=== PATIENT | male | born 1985 | race Two or more races ===

== ENCOUNTER 2018-04-04 21:54 | Emergency (ER) | payer SELFPAY ==
[~2018-04-04] VITALS: Ht 167.6 cm; Wt 88.0 kg
[2018-04-04 22:29] LABS: BASOPHILS # (AUTO) 0.02 x10^3/uL (0-0.1); BASOPHILS % (AUTO) 0 % (0-1); EOSINOPHILS # (AUTO) 0.14 x10^3/uL (0-0.4); EOSINOPHILS % (AUTO) 2 % (1-7); LYMPHOCYTES # (AUTO) 2.14 x10^3/uL (1-3.4); LYMPHOCYTES % (AUTO) 34 % (22-44); MD NO; MEAN CORPUSCULAR HEMOGLOBIN 29.9 pg (27.5-34.5); MEAN CORPUSCULAR HGB CONC 33.9 g/dL (33.2-36.2); MEAN CORPUSCULAR VOLUME 88.2 fL (81-97); MEAN PLATELET VOLUME 7.2 fL (7.4-10.4); MONOCYTES % (AUTO) 10 % (2-9); NEUTROPHILS # (AUTO) 3.48 x10^3/uL (1.8-6.8); NEUTROPHILS % (AUTO) 54 % (42-75); PLATELET COUNT 295 x10^3/uL (130-400); RED BLOOD COUNT 4.86 x10^6/uL (4.38-5.82); RED CELL DISTRIBUTION WIDTH 13.1 % (9.4-14.8)
[2018-04-04] MEDS ORDERED: PANTOPRAZOLE 20MG TABLET ONE (22:30)
[2018-04-04] MEDS ORDERED: PANTOPRAZOLE 20MG TABLET PO ONE (22:30)
[2018-04-04] MEDS ORDERED: ONDANSETRON ODT 4 MG PO ONE (22:30)
[2018-04-04] MEDS ORDERED: ONDANSETRON ODT 4 MG ONE (22:31)
[2018-04-04 22:41] LABS: ALANINE AMINOTRANSFERASE 71 U/L (12-78); ALBUMIN 2.9 g/dL (3.4-5.0); ANION GAP 9 mmol/L (5-15); CALCIUM 7.8 mg/dL (8.5-10.1); CHLORIDE 111 mmol/L (98-107); CREATININE 1.01 mg/dL (0.7-1.3)
[2018-04-04 22:43] LABS: ALKALINE PHOSPHATASE 100 U/L (45-117); BILIRUBIN,TOTAL 0.2 mg/dL (0.2-1.0)
[2018-04-04 22:56] LABS: MICROSCOPIC NOT IND
[2018-04-04 23:01] LABS: CULTURE INDICATED? NO
[2018-04-04 23:27] VITALS: BP 105/52
== END 2018-04-05 00:07 ==
LOC: ED 04-05 00:01
DX: R10.84 Generalized abdominal pain (principal); R11.2 Nausea with vomiting, unspecified
CPT/HCPCS: 36415; 74021; 80053; 81003; 83690; 85025; 99285

== ENCOUNTER 2018-04-07 13:27 | Emergency (ER) | payer MEDICAID ==
[~2018-04-07] VITALS: Ht 167.6 cm; Wt 91.3 kg
[2018-04-07 14:19] LABS: BASOPHILS % (AUTO) 0 % (0-1); EOSINOPHILS # (AUTO) 0.14 x10^3/uL (0-0.4); EOSINOPHILS % (AUTO) 3 % (1-7); LYMPHOCYTES # (AUTO) 1.49 x10^3/uL (1-3.4); LYMPHOCYTES % (AUTO) 29 % (22-44); MD NO; MEAN CORPUSCULAR HEMOGLOBIN 29.3 pg (27.5-34.5); MEAN CORPUSCULAR HGB CONC 33.5 g/dL (33.2-36.2); MEAN CORPUSCULAR VOLUME 87.3 fL (81-97); MEAN PLATELET VOLUME 7.2 fL (7.4-10.4); MONOCYTES # (AUTO) 0.43 x10^3/uL (0.2-0.8); MONOCYTES % (AUTO) 8 % (2-9); NEUTROPHILS # (AUTO) 3.09 x10^3/uL (1.8-6.8); NEUTROPHILS % (AUTO) 60 % (42-75); PLATELET COUNT 269 x10^3/uL (130-400); RED BLOOD COUNT 4.94 x10^6/uL (4.38-5.82); RED CELL DISTRIBUTION WIDTH 13.4 % (9.4-14.8)
[2018-04-07 14:28] LABS: ALANINE AMINOTRANSFERASE 82 U/L (12-78); ALBUMIN 3.1 g/dL (3.4-5.0); ANION GAP 8 mmol/L (5-15); CALCIUM 8.2 mg/dL (8.5-10.1); CHLORIDE 111 mmol/L (98-107)
[2018-04-07 14:30] LABS: ALKALINE PHOSPHATASE 103 U/L (45-117); BILIRUBIN,TOTAL 0.3 mg/dL (0.2-1.0); TOTAL PROTEIN 6.4 g/dL (6.4-8.2)
[2018-04-07] MEDS ORDERED: ONDANSETRON ODT 4 MG ONE (14:40)
[2018-04-07] MEDS ORDERED: ONDANSETRON ODT 4 MG PO ONE (15:00)
[2018-04-07 16:07] VITALS: BP 139/77
== END 2018-04-07 16:10 ==
LOC: ED 16:04
DX: R11.2 Nausea with vomiting, unspecified (principal); R10.84 Generalized abdominal pain; J02.8 Acute pharyngitis due to other specified organisms; B97.89 Other viral agents as the cause of diseases classified elsewhere
CPT/HCPCS: 36415; 74022; 80053; 83690; 85025; 99285; Q0162

== ENCOUNTER 2018-04-08 11:05 | Emergency (ER) | payer MEDICAID ==
[~2018-04-08] VITALS: Ht 167.6 cm; Wt 92.6 kg
[2018-04-08] MEDS ORDERED: ONDANSETRON ODT 4 MG ONE (12:23)
[2018-04-08] MEDS ORDERED: DICYCLOMINE 10 MG/ML, 2ML ONE (12:29)
[2018-04-08] MEDS ORDERED: DICYCLOMINE 10 MG/ML, 2ML IM ONE (12:30)
[2018-04-08] MEDS ORDERED: ONDANSETRON ODT 8 MG PO ONE (12:30)
[2018-04-08 12:47] LABS: ALANINE AMINOTRANSFERASE 89 U/L (12-78); ALBUMIN 3.1 g/dL (3.4-5.0); ANION GAP 7 mmol/L (5-15); CALCIUM 8.1 mg/dL (8.5-10.1); CHLORIDE 108 mmol/L (98-107); CREATININE 0.87 mg/dL (0.7-1.3)
[2018-04-08 12:49] LABS: ALKALINE PHOSPHATASE 102 U/L (45-117); BASOPHILS # (AUTO) 0.02 x10^3/uL (0-0.1); BASOPHILS % (AUTO) 0 % (0-1); BILIRUBIN,TOTAL 0.4 mg/dL (0.2-1.0); EOSINOPHILS # (AUTO) 0.12 x10^3/uL (0-0.4); EOSINOPHILS % (AUTO) 2 % (1-7); LYMPHOCYTES # (AUTO) 1.37 x10^3/uL (1-3.4); LYMPHOCYTES % (AUTO) 21 % (22-44); MD NO; MEAN CORPUSCULAR HEMOGLOBIN 29.3 pg (27.5-34.5); MEAN CORPUSCULAR HGB CONC 33.5 g/dL (33.2-36.2); MEAN CORPUSCULAR VOLUME 87.4 fL (81-97); MEAN PLATELET VOLUME 7.3 fL (7.4-10.4); MONOCYTES # (AUTO) 0.62 x10^3/uL (0.2-0.8); MONOCYTES % (AUTO) 9 % (2-9); NEUTROPHILS # (AUTO) 4.55 x10^3/uL (1.8-6.8); NEUTROPHILS % (AUTO) 68 % (42-75); PLATELET COUNT 256 x10^3/uL (130-400); RED BLOOD COUNT 5.12 x10^6/uL (4.38-5.82); RED CELL DISTRIBUTION WIDTH 13.1 % (9.4-14.8); TOTAL PROTEIN 6.4 g/dL (6.4-8.2)
[2018-04-08 14:04] VITALS: BP 142/80
== END 2018-04-08 14:08 | disposition home or self-care (01) ==
LOC: ED 12:22
DX: G89.29 Other chronic pain (principal); R11.2 Nausea with vomiting, unspecified; R10.9 Unspecified abdominal pain; B19.10 Unspecified viral hepatitis B without hepatic coma
CPT/HCPCS: 36415; 80053; 83690; 85025; 96372; 99284; J0500; Q0162

== ENCOUNTER 2018-04-11 05:27 | Emergency (ER) | payer MEDICAID ==
[~2018-04-11] VITALS: Ht 167.6 cm; Wt 87.7 kg
[2018-04-11 05:30] VITALS: BP 132/81
[2018-04-11] MEDS ORDERED: ONDANSETRON ODT 4 MG ONE (05:52)
[2018-04-11] MEDS ORDERED: HYDROcodone/APAP 7.5-325MG/15ML UDC ONE (05:52)
[2018-04-11] MEDS ORDERED: DEXAMETHASONE 4 MG TABLET ONE (05:52)
[2018-04-11] MEDS ORDERED: HYDROcodone/APAP 7.5-325MG/15ML UDC PO ONE (06:00)
[2018-04-11] MEDS ORDERED: ONDANSETRON ODT 4 MG PO ONE (06:00)
[2018-04-11] MEDS ORDERED: DEXAMETHASONE 4 MG TABLET PO ONE (06:00)
== END 2018-04-11 07:13 | disposition home or self-care (01) ==
LOC: ED 06:19
DX: J02.8 Acute pharyngitis due to other specified organisms (principal); B97.89 Other viral agents as the cause of diseases classified elsewhere; Z72.9 Problem related to lifestyle, unspecified; Z59.0 Homelessness
CPT/HCPCS: 71046; 87081; 87880; 99284; Q0162

== ENCOUNTER 2018-04-14 06:21 | Emergency (ER) | payer MEDICAID ==
[~2018-04-14] VITALS: Ht 167.6 cm; Wt 89.6 kg
[2018-04-14] MEDS ORDERED: SODIUM CHLORIDE 0.9% 1,000ML IVBOLUS ONE (07:30)
[2018-04-14] MEDS ORDERED: ONDANSETRON 2MG/ML, 2ML IVPush ONE (07:30)
[2018-04-14] MEDS ORDERED: MORPHINE SULFATE 4 MG/ML, 1ML ONE ×2 (07:49→10:54)
[2018-04-14] MEDS ORDERED: DIPHENHYDRAMINE 50 MG/ML, 1ML ONE (07:49)
[2018-04-14] MEDS ORDERED: ONDANSETRON 2MG/ML, 2ML ONE (07:49)
[2018-04-14] MEDS: MORPHINE SULFATE 4 MG/ML, 1ML IVPush PRN ×2 (07:56→10:56)
[2018-04-14] MEDS ORDERED: DIPHENHYDRAMINE 50 MG/ML, 1ML IVPush ONE (08:00)
[2018-04-14 08:07] LABS: BASOPHILS % (AUTO) 0 % (0-1); EOSINOPHILS # (AUTO) 0.09 x10^3/uL (0-0.4); EOSINOPHILS % (AUTO) 1 % (1-7); LYMPHOCYTES # (AUTO) 0.88 x10^3/uL (1-3.4); LYMPHOCYTES % (AUTO) 11 % (22-44); MD NO; MEAN CORPUSCULAR HEMOGLOBIN 29.4 pg (27.5-34.5); MEAN CORPUSCULAR HGB CONC 33.9 g/dL (33.2-36.2); MEAN CORPUSCULAR VOLUME 86.8 fL (81-97); MEAN PLATELET VOLUME 7.1 fL (7.4-10.4); MONOCYTES # (AUTO) 0.52 x10^3/uL (0.2-0.8); MONOCYTES % (AUTO) 7 % (2-9); NEUTROPHILS # (AUTO) 6.44 x10^3/uL (1.8-6.8); NEUTROPHILS % (AUTO) 81 % (42-75); PLATELET COUNT 217 x10^3/uL (130-400); RED BLOOD COUNT 5.35 x10^6/uL (4.38-5.82); RED CELL DISTRIBUTION WIDTH 13.1 % (9.4-14.8)
[2018-04-14 08:15] LABS: ALANINE AMINOTRANSFERASE 76 U/L (12-78); ALBUMIN 3.1 g/dL (3.4-5.0); ANION GAP 7 mmol/L (5-15); CALCIUM 8.1 mg/dL (8.5-10.1); CHLORIDE 105 mmol/L (98-107); CREATININE 0.88 mg/dL (0.7-1.3)
[2018-04-14 08:18] LABS: ALKALINE PHOSPHATASE 93 U/L (45-117); BILIRUBIN,TOTAL 0.8 mg/dL (0.2-1.0); TOTAL PROTEIN 6.6 g/dL (6.4-8.2)
[2018-04-14] MEDS ORDERED: OMNIPAQUE 350 MG/ML, 100ML BOTTLE ONE (09:52)
[2018-04-14 11:40] VITALS: BP 115/64
== END 2018-04-14 12:20 | disposition home or self-care (01) ==
LOC: ED 07:04
DX: R10.84 Generalized abdominal pain (principal); J15.9 Unspecified bacterial pneumonia; R11.2 Nausea with vomiting, unspecified; R19.7 Diarrhea, unspecified
CPT/HCPCS: 36415; 74177; 80053; 83690; 85025; 93005; 96361; 96374; 96375; 96376; 99284; J1200; J2405; J7030; Q9967

== ENCOUNTER 2018-04-15 06:18 | Emergency (ER) | payer MEDICAID ==
[~2018-04-15] VITALS: Ht 167.6 cm; Wt 88.6 kg
[2018-04-15 06:20] VITALS: BP 117/69
== END 2018-04-15 07:03 | disposition home or self-care (01) ==
LOC: ED 06:26
DX: J18.9 Pneumonia, unspecified organism (principal); Z76.5 Malingerer [conscious simulation]
CPT/HCPCS: 99281

== ENCOUNTER 2018-04-17 01:55 | Emergency (ER) | payer MEDICAID ==
[~2018-04-17] VITALS: Ht 167.6 cm; Wt 89.9 kg
[2018-04-17 03:47] VITALS: BP 120/80
== END 2018-04-17 03:49 | disposition home or self-care (01) ==
LOC: ED 02:44
DX: J15.9 Unspecified bacterial pneumonia (principal); K52.9 Noninfective gastroenteritis and colitis, unspecified; Z76.5 Malingerer [conscious simulation]
CPT/HCPCS: 93005; 99283

== ENCOUNTER 2018-05-02 03:17 | Emergency (ER) | payer MEDICAID ==
[~2018-05-02] VITALS: Ht 167.6 cm; Wt 88.9 kg
[2018-05-02 03:19] VITALS: BP 149/80
== END 2018-05-02 04:50 | disposition home or self-care (01) ==
LOC: ED 04:43
DX: R05 Cough (principal); F17.200 Nicotine dependence, unspecified, uncomplicated; Z72.9 Problem related to lifestyle, unspecified; Z90.49 Acquired absence of other specified parts of digestive tract
CPT/HCPCS: 71045; 99283

== ENCOUNTER 2018-05-17 20:45 | Emergency (ER) | payer MEDICAID ==
[~2018-05-17] VITALS: Ht 167.6 cm; Wt 85.1 kg
[2018-05-17 20:45] VITALS: BP 111/71
[2018-05-17] MEDS ORDERED: DEXAMETHASONE 4 MG TABLET ONE (21:42)
[2018-05-17] MEDS ORDERED: DEXAMETHASONE 4 MG TABLET PO ONE (22:00)
== END 2018-05-17 22:01 | disposition home or self-care (01) ==
LOC: ED 21:56
DX: R07.89 Other chest pain (principal); J02.8 Acute pharyngitis due to other specified organisms; B97.89 Other viral agents as the cause of diseases classified elsewhere; R05 Cough; G89.29 Other chronic pain; F17.200 Nicotine dependence, unspecified, uncomplicated; Z90.89 Acquired absence of other organs; Z90.49 Acquired absence of other specified parts of digestive tract
CPT/HCPCS: 71046; 87081; 87147; 87880; 93005; 99284

== ENCOUNTER 2018-05-23 01:22 | Emergency (ER) | payer MEDICAID ==
[~2018-05-23] VITALS: Ht 177.8 cm; Wt 80.0 kg
[2018-05-23 01:25] VITALS: BP 140/81
[2018-05-23] MEDS ORDERED: DEXAMETHASONE 4 MG TABLET ONE ×2 (01:41→01:44)
[2018-05-23] MEDS ORDERED: DEXAMETHASONE 4 MG TABLET PO ONE (02:00)
== END 2018-05-23 02:09 | disposition home or self-care (01) ==
LOC: ED 01:53
DX: J02.0 Streptococcal pharyngitis (principal); F17.200 Nicotine dependence, unspecified, uncomplicated; G89.29 Other chronic pain
CPT/HCPCS: 99283

== ENCOUNTER 2018-08-29 16:25 | Emergency (ER) | payer MEDICAID ==
[~2018-08-29] VITALS: Ht 172.7 cm; Wt 65.0 kg
[2018-08-29 16:33] VITALS: BP 119/71
--- NOTE | 2018-08-29 16:51 | NUR ---
PTS WHEN ASKED WHY HE WAS HERE STATED "LOOK, I NEED TO STAY HERE THIS TIME" WHEN ASKED WHAT IS WRONG HE STATED "THEY SCREWED UP MY SURG AND YOU NEED TO FIND OUT WHAT IS WRONG" PT CONTINULY NEEDS TO BE REMINDED TO STAY AWAKE AND ANSWER QUESTIONS '
[2018-08-29] MEDS ORDERED: FAMOTIDINE 20 MG TABLET PO ONE (17:00)
[2018-08-29] MEDS ORDERED: FAMOTIDINE 20 MG TABLET ONE (17:01)
[2018-08-29 17:18] LABS: BASOPHILS # (AUTO) 0.02 x10^3/uL (0-0.1); BASOPHILS % (AUTO) 1 % (0-1); EOSINOPHILS # (AUTO) 0.13 x10^3/uL (0-0.4); EOSINOPHILS % (AUTO) 3 % (1-7); LYMPHOCYTES # (AUTO) 1.81 x10^3/uL (1-3.4); LYMPHOCYTES % (AUTO) 39 % (22-44); MD NO; MEAN CORPUSCULAR HEMOGLOBIN 29.9 pg (27.5-34.5); MEAN CORPUSCULAR HGB CONC 34.2 g/dL (33.2-36.2); MEAN CORPUSCULAR VOLUME 87.4 fL (81-97); MEAN PLATELET VOLUME 7.7 fL (7.4-10.4); MONOCYTES # (AUTO) 0.42 x10^3/uL (0.2-0.8); MONOCYTES % (AUTO) 9 % (2-9); NEUTROPHILS # (AUTO) 2.29 x10^3/uL (1.8-6.8); NEUTROPHILS % (AUTO) 49 % (42-75); PLATELET COUNT 196 x10^3/uL (130-400); RED BLOOD COUNT 4.76 x10^6/uL (4.38-5.82); RED CELL DISTRIBUTION WIDTH 13.8 % (9.4-14.8)
[2018-08-29 17:27] LABS: ALANINE AMINOTRANSFERASE 33 U/L (12-78); ALBUMIN 3.6 g/dL (3.4-5.0); ANION GAP 6 mmol/L (5-15); CALCIUM 8.6 mg/dL (8.5-10.1); CHLORIDE 111 mmol/L (98-107)
[2018-08-29 17:29] LABS: ALKALINE PHOSPHATASE 85 U/L (45-117); BILIRUBIN,TOTAL 0.3 mg/dL (0.2-1.0); TOTAL PROTEIN 6.4 g/dL (6.4-8.2)
== END 2018-08-29 18:59 | disposition home or self-care (01) ==
LOC: ED 18:30
DX: G89.29 Other chronic pain (principal); R10.84 Generalized abdominal pain; Z90.49 Acquired absence of other specified parts of digestive tract; Z72.9 Problem related to lifestyle, unspecified; Z59.0 Homelessness
CPT/HCPCS: 36415; 74021; 80053; 83690; 85025; 99284

== ENCOUNTER 2018-09-17 15:38 | Emergency (ER) | payer MEDICAID ==
[~2018-09-17] VITALS: Ht 162.6 cm; Wt 65.0 kg
[2018-09-17] MEDS ORDERED: ZIPRASIDONE 20 MG INJ IM ONE ×2 (16:00→16:03)
[2018-09-17 16:14] LABS: BASOPHILS # (AUTO) 0.03 x10^3/uL (0-0.1); BASOPHILS % (AUTO) 0 % (0-1); EOSINOPHILS # (AUTO) 0.03 x10^3/uL (0-0.4); EOSINOPHILS % (AUTO) 0 % (1-7); LYMPHOCYTES # (AUTO) 1.37 x10^3/uL (1-3.4); LYMPHOCYTES % (AUTO) 19 % (22-44); MD NO; MEAN CORPUSCULAR HEMOGLOBIN 28.9 pg (27.5-34.5); MEAN CORPUSCULAR VOLUME 87.7 fL (81-97); MEAN PLATELET VOLUME 7.5 fL (7.4-10.4); MONOCYTES # (AUTO) 0.39 x10^3/uL (0.2-0.8); MONOCYTES % (AUTO) 5 % (2-9); NEUTROPHILS # (AUTO) 5.58 x10^3/uL (1.8-6.8); NEUTROPHILS % (AUTO) 75 % (42-75); PLATELET COUNT 307 x10^3/uL (130-400); RED BLOOD COUNT 5.26 x10^6/uL (4.38-5.82); RED CELL DISTRIBUTION WIDTH 13.6 % (9.4-14.8)
--- NOTE | 2018-09-17 16:15 | NUR ---
PT FOUND TO HAVE SYRINGE WITH LIQUID IN POCKET. SECURED BY TECH AND DISPOSED OF. MEDICATED PER ORDERS. PT CONTINUES TO TALK NONSTOP, FLIGHTS OF IDEAS. PT'S CLOTHES REMOVED AND PLACED IN GOWN.
[2018-09-17 16:18] LABS: CHLORIDE 107 mmol/L (98-107)
[2018-09-17 16:24] LABS: ALANINE AMINOTRANSFERASE 31 U/L (12-78); ALBUMIN 3.8 g/dL (3.4-5.0); ANION GAP 8 mmol/L (5-15); CALCIUM 8.2 mg/dL (8.5-10.1); CREATININE 1.02 mg/dL (0.7-1.3)
[2018-09-17 16:27] LABS: ALKALINE PHOSPHATASE 84 U/L (45-117); BILIRUBIN,TOTAL 0.9 mg/dL (0.2-1.0); TOTAL PROTEIN 7.3 g/dL (6.4-8.2)
[2018-09-17 16:28] LABS: ACETAMINOPHEN < 2 mcg/mL (10-30); SALICYLATE LEVEL < 1.7 mg/dL (2.8-20.0)
--- NOTE | 2018-09-17 16:47 | NUR ---
TASK RN: Patient laying in bed with eyes closed, respirations appear even and without labor, patient appears to be asleep. Sitter within view of patient for patient's safety.
--- NOTE | 2018-09-17 17:26 | NUR ---
PT DROWSY BUT AROUSABLE. NO LONGER RAMBLING. PT ABLE TO ASK FOR WATER AND SAYS THANK YOU. BACK TO SLEEP
[2018-09-17 17:40] LABS: AMPHETAMINE SCREEN, URINE Positive (Negative); BARBITURATE SCREEN, URINE Negative (Negative); BENZODIAZEPINE SCREEN, URINE Negative (Negative); CANNABINOID SCREEN, URINE Negative (Negative); COCAINE SCREEN, URINE Negative (Negative); METHADONE SCREEN, URINE Negative (Negative); OPIATE SCREEN, URINE Negative (Negative)
--- NOTE | 2018-09-17 18:04 | NUR ---
PT SLEEPING, RESP EVEN AND UNLABORED
--- NOTE | 2018-09-17 18:51 | NUR ---
PT SLEEPING, RESP EVEN AND UNLABORED
[2018-09-17 19:58] VITALS: BP 106/63
--- NOTE | 2018-09-17 19:59 | NUR ---
DROWSY BUT AROUSABLE. VS UPDATED
--- NOTE | 2018-09-17 20:38 | NUR ---
PT AMBULATED WITH TECH, STEADY GAIT.
--- NOTE | 2018-09-17 21:03 | NUR ---
PT PROVIDED SHIRT AND SOCKS AND SNACK. AMBULATED TO DISCHARGE WINDOW, STEADY GAIT. GIVEN VOUCHER TO GET TO [facility].
== END 2018-09-17 21:06 | disposition home or self-care (01) ==
LOC: ED 17:30
DX: F22 Delusional disorders (principal); F15.10 Other stimulant abuse, uncomplicated; Z72.9 Problem related to lifestyle, unspecified
CPT/HCPCS: 36415; 80053; 80307; 80329; 85025; 96372; 99284; J3486; 99283; G0480